=== PATIENT | female | born 1955 | race African-American/Black ===

== ENCOUNTER 2017-08-23 17:55 | Inpatient (IN) ==
[2017-08-23] MEDS ORDERED: 0.9 % Sodium Chloride 1,000 ML IVC ONE (18:09)
--- NOTE | 2017-08-23 18:18 | Emergency Department Note ---
Disposition Clinical Impression: Confusion Headache Qualifiers: Headache type: unspecified Headache chronicity pattern: unspecified pattern Intractability: not intractable Qualified Code(s): R51 - Headache Disposition: Still a Patient Condition: Good Referrals: Ham Ramirez DO [Primary Care Provider] - Time of Disposition: 18:58 General Adult HPI - General Chief complaint: ED Headache Stated complaint: headache Time Seen by Provider: 08/23/17 17:56 Source: patient, EMS Mode of arrival: ambulatory Limitations: no limitations Nursing Notes Reviewed: Yes Vital Signs Reviewed: Yes - History of Present Illness HPI Narrative: Patient presents to emergency room in the care of the family for what appears to be an acute change in mental status. By the time she arrived to the emergency room patient was completely back to baseline. Denies any other symptoms or complaints except for a headache at this time. She has no vision diarrhea, vision changes chest pain shortness breath fevers or chills at this time. Onset (ago): Just ENCAPSULATOR Location: head Radiation: non-radiation Pain Severity: moderate Pain Scale: 10 Quality: aching Consistency: constant Improves with: nothing Worsens with: nothing Associated symptoms: Reports: denies other symptoms Treatments Prior to Arrival: none - Related Data Home Medications Medication Instructions Recorded Confirmed Azathioprine [Imuran] 50 mg PO DAILY 09/09/16 04/26/17 Canagliflozin [Invokana] 300 mg PO DAILY 09/09/16 04/26/17 Diclofenac Sodium [Voltaren] 1 appl TP QID 09/09/16 04/26/17 Fexofenadine HCl [Allergy Relief] 180 mg PO DAILY 09/09/16 04/26/17 Ibuprofen [Motrin] 200 mg PO Q6HR PRN 09/09/16 04/26/17 Losartan/HCTZ [Hyzaar 50-12.5 1 tab PO DAILY 09/09/16 04/26/17 Tablet] Mesalamine [Delzicol] 800 mg PO TIDAC 09/09/16 04/26/17 Montelukast [Singulair] 10 mg PO DAILY 09/09/16 04/26/17 Multivitamin [One Daily Essential] 1 tab PO DAILY 09/09/16 04/26/17 Nystatin/Triamcinolone CRM 1 appl TP BID 09/09/16 04/26/17 [Mycolog] Ondansetron ODT [Zofran ODT] 4 mg SL Q4-6H PRN 09/09/16 04/26/17 Pantoprazole Sodium [Protonix] 40 mg PO DAILY 09/09/16 04/26/17 Paroxetine HCl [Paxil] 20 mg PO DAILY 09/09/16 04/26/17 Potassium Chloride [Klor-Con 10 meq PO DAILY 09/09/16 04/26/17 Sprinkle] Pravastatin Sodium [Pravachol] 20 mg PO HS 09/09/16 04/26/17 Ranitidine HCl [Zantac] 150 mg PO BID 09/09/16 04/26/17 SitaGLIPtin [Januvia] 100 mg PO DAILY 09/09/16 04/26/17 metFORMIN [Glucophage] 500 mg PO TID 09/09/16 04/26/17 predniSONE [PredniSONE] 5 mg PO DAILY 09/09/16 04/26/17 Previous Rx's Medication Instructions Recorded Ondansetron [Zofran] 8 mg PO Q8HR #10 tablet 09/09/16 Allergies Allergy/AdvReac Type Severity Reaction Status Date / Time Erythromycin Base Allergy Vomiting Verified 08/23/17 18:02 levofloxacin [From Levaquin] Allergy Rash Verified 08/23/17 18:02 Sulfa (Sulfonamide Allergy Rash Verified 08/23/17 18:02 Antibiotics) sulfamethoxazole Allergy Rash Verified 08/23/17 18:02 [From Bactrim] trimethoprim [From Bactrim] Allergy Rash Verified 08/23/17 18:02 All systems ED: reviewed and negative except as stated. Review of Systems: As Per HPI Constitutional: Denies: fever, chills Eyes: Denies: eye pain, eye discharge, vision change ENT ED: Denies: ear pain, throat pain, dental pain Cardiovascular: Denies: chest pain, palpitations, dyspnea on exertion Respiratory: Denies: cough, dyspnea, wheezes Gastrointestinal: Denies: nausea, vomiting, diarrhea Genitourinary: Denies: dysuria, frequency Musculoskeletal: Denies: back pain, neck pain Neurological: Denies: headache Endocrine: Denies: fatigue Past Medical History - Past Medical History Attestation: Yes The following information was validated with the patient. Source: patient Medical history: Reports: diabetes, GERD, hyperlipidemia, hypertension, migraine , other Surgical history: Reports: hysterectomy, sinus surgery, MINA/BSO, other Psychiatric history: Reports: anxiety, depression - Social History Smoking Status: Never smoker Smokeless Tobacco Status: No Alcohol use: Reports: none Drug use: Reports: none Physical Exam - General Limitations: no limitations General appearance: alert, in no apparent distress - Head Head exam: atraumatic, normocephalic, normal inspection - Eye Eye exam: Present: normal appearance, PERRL, EOMI - ENT ENT exam: normal exam, normal oropharynx, mucous membranes moist - Neck Neck exam: Present: normal inspection, full ROM, trachea midline - Chest Chest inspection: Present: normal inspection, symmetric chest wall rise - Respiratory Respiratory exam: Present: normal lung sounds bilaterally. Absent: respiratory distress, wheezes - Cardiovascular Cardiovascular exam: Present: regular rate, normal rhythm, normal heart sounds - Abdominal Exam Abdominal exam: Present: soft, Non-Tender, normal bowel sounds. Absent: tenderness, distention, guarding, rebound, rigidity, Howard's sign, Rovsing's sign, tenderness at McBurney's Point - Extremities Exam Extremities exam: Present: normal inspection, full ROM, normal capillary refill. Absent: tenderness - Back Exam Back exam: Present: normal inspection, full ROM. Absent: tenderness - Neurological Exam Neurological exam: Present: alert, oriented X3, CN II-XII intact, normal gait - Skin Skin exam: Present: warm Course Course Narrative: 62-year-old female presents to emergency room with an episode of confusion and altered mentation just prior to arrival. Patient was with family today and the found her with her eyes deviated to the right looking upwards. She does have a history of diabetes and has been hypoglycemic one time in the past. They did not check her glucose at that time. The son did give her G was prior to coming in. Repeat Accu-Chek on presentation is 100. On arrival patient is alert oriented speaking in full sentences. Her main complaint is a headache. Denies any vision changes she has intermittent nausea but no vomiting. Denies any chest pain shortness of breath nausea at this time. Patient is having some intermittent short-term memory related issues. Patient will screening evaluation for possible transient ischemic event versus hypoglycemic event. Infectious etiology will be addressed and reviewed. CT of the head chest x-ray EKG labs including CBC chemistry urinalysis troponin and thyroid function will be patient is concerning for possible strokelike symptoms. She had detailed workup completed this time. She will most likely need admission. Detailed sign out completed to Dr. Matson and Dr. akins The overnight physicians. Patient family informed in detail. Bedside signout will be completed. Vital Signs Temperature 98.9 F 08/23/17 17:55 Pulse Rate 72 08/23/17 17:55 Respiratory Rate 16 08/23/17 17:55 Blood Pressure 126/77 08/23/17 17:55 O2 Sat by Pulse Oximetry 100 08/23/17 17:55 Temperature 98.9 F 08/23/17 17:55 Pulse Rate 72 08/23/17 17:55 Respiratory Rate 16 08/23/17 17:55 Blood Pressure 126/77 08/23/17 17:55 O2 Sat by Pulse Oximetry 100 08/23/17 17:55 Oxygen Delivery Oxygen Delivery Room Air Medical Decision Making - MDM Narrative Medical decision making narrative: Altered mentation - Medical Records Medical records reviewed: Yes I reviewed the patient's medical records. - Lab Data Lab results reviewed: Yes I reviewed the patient's lab results. - Radiology Data Radiology results reviewed: Yes I reviewed the patient's radiology results. - EKG Data EKG #1 EKG attestation: Yes I reviewed and interpreted this EKG. EKG results narrative: EKG shows sinus rhythm. No acute signs of ST segment elevation. Patient may have mild left ventricular hypertrophy the list on 5 mm of elevation in aVL. She has had inverted T waves in lead 3. This appears to be chronic in comparison EKG on 06/28/13. [place] appears to be normal. No other acute interval changes. Ventricular rate is 68. IL interval 151. QRS duration 109. QTC is 391. Acute signs of WPW, [place], no abnormality at this time
[2017-08-23 18:42] LABS: Basophils % 0.4 %; Eosinophils % 0.2 %; Hematocrit 38.3 % (35.3-44.9); Hemoglobin 12.2 g/dL (11.5-15.4); Immature Granulocytes % 0.8 % (0-4); Lymphocytes # 1.6 K/mcL (0.6-4.6); Mean Corpuscular HGB Conc 31.9 g/dL (31.6-35.5); Mean Corpuscular Hemoglobin 28.3 pg (28.0-33.3); Mean Corpuscular Volume 88.9 fL (83.0-100.0); Monocytes % 9.9 %; Neutrophils # 6.9 K/mcL (1.6-8.9); Platelet Count 367 K/mcL (140-400); Red Blood Count 4.31 M/mcL (3.82-4.97); Red Cell Distribution Width 16.6 % (11.5-14.5); Segmented Neutrophils % 71.7 %
[2017-08-23 18:47] LABS: INR 0.9; Prothrombin Time 9.6 Seconds (9.4-12.1)
[2017-08-23 18:49] LABS: Activated Partial Thrombo Time 24.1 Seconds (26.0-36.0)
[2017-08-23 18:49] LABS: Bilirubin,Urine Negative (Negative); Blood,Urine Small (Negative); Clarity,Urine Clear (Clear); Color,Urine Yellow (Yellow); Glucose,Urine (UA) >=1000 mg/dL (Normal); Ketones,Urine Negative (Negative); Leukocyte Esterase,Urine Negative (Negative); Nitrite,Urine Negative (Negative); Protein,Urine Negative (Neg-Trace); Specific Gravity,Urine 1.027 (1.010-1.025); Urobilinogen,Urine Normal (Normal)
[2017-08-23 18:51] LABS: Bacteria,Urine None Seen per hpf (None-Few); Hyaline Casts,Urine None Seen per lpf (None-Few); Squamous Epithelial Cell,Urine Few per lpf (None-Few); WBC,Urine 0-3 per hpf (0-3)
[2017-08-23 18:57] LABS: Alanine Aminotransferase 27 Units/L (7-52); Albumin 3.7 g/dL (3.5-5.7); Albumin/Globulin Ratio 1.4 (1.1-2.2); Alkaline Phosphatase 66 Units/L (34-104); Aspartate Amino Transferase 18 Units/L (13-39); BUN/Creatinine Ratio 22 (6-26); Bilirubin,Direct 0.1 mg/dL (0.0-0.2); Bilirubin,Indirect 0.1 mg/dL (0.0-1.2); Bilirubin,Total 0.2 mg/dL (0.3-1.0); Blood Urea Nitrogen 21 mg/dL (8-23); Calcium 8.9 mg/dL (8.6-10.3); Carbon Dioxide 27 mEq/L (23-29); Chloride 105 mEq/L (98-107); Globulin 2.6 g/dL (2.4-3.5); Glucose 159 mg/dL (70-105); Osmolality,Calculated 298 (280-300); Sodium 141 mEq/L (136-145); Total Protein 6.3 g/dL (6.4-8.9); eGFR For African Americans > 60 (> 60); eGFR For Non-African Americans > 60 (> 60)
[2017-08-23 19:11] LABS: Thyroid Stimulating Hormone 0.812 mcIU/mL (0.340-5.600)
[2017-08-23] MEDS ORDERED: Ketorolac 15 MG/ML VIAL IVP ONE (19:57)
[2017-08-23] MEDS ORDERED: Metoclopramide 10 MG/2 ML VIAL IVP ONE (19:57)
--- NOTE | 2017-08-23 20:49 | Emergency Department Note ---
Disposition Clinical Impression: Confusion, Transient alteration of awareness Headache Qualifiers: Headache type: unspecified Headache chronicity pattern: unspecified pattern Intractability: not intractable Qualified Code(s): R51 - Headache Disposition: Admitted As Inpatient Condition: Good Referrals: Ham Ramirez DO [Primary Care Provider] - Forms: ED Satisfaction Letter General Adult HPI - General Chief complaint: ED Headache Stated complaint: headache Time Seen by Provider: 08/23/17 17:56 Source: patient, EMS Mode of arrival: ambulatory Limitations: no limitations - History of Present Illness Location: head Pain Scale: 10 Quality: aching Improves with: nothing Worsens with: nothing Associated symptoms: Reports: denies other symptoms Treatments Prior to Arrival: none - Related Data Home Medications Medication Instructions Recorded Confirmed Azathioprine [Imuran] 50 mg PO DAILY 09/09/16 08/23/17 Canagliflozin [Invokana] 300 mg PO DAILY 09/09/16 08/23/17 Fexofenadine HCl [Allergy Relief] 180 mg PO DAILY 09/09/16 08/23/17 Ibuprofen [Motrin] 200 mg PO Q6HR PRN 09/09/16 08/23/17 Losartan/HCTZ [Hyzaar 50-12.5 1 tab PO DAILY 09/09/16 08/23/17 Tablet] Mesalamine [Delzicol] 800 mg PO TIDAC 09/09/16 08/23/17 Montelukast [Singulair] 10 mg PO DAILY 09/09/16 08/23/17 Multivitamin [One Daily Essential] 1 tab PO DAILY 09/09/16 08/23/17 Nystatin/Triamcinolone CRM 1 appl TP BID PRN 09/09/16 08/23/17 [Mycolog] Ondansetron ODT [Zofran ODT] 4 mg SL Q4-6H PRN 09/09/16 08/23/17 Pantoprazole Sodium [Protonix] 40 mg PO DAILY 09/09/16 08/23/17 Paroxetine HCl [Paxil] 20 mg PO DAILY 09/09/16 08/23/17 Potassium Chloride [Klor-Con 10 meq PO DAILY 09/09/16 08/23/17 Sprinkle] Pravastatin Sodium [Pravachol] 20 mg PO HS 09/09/16 08/23/17 Ranitidine HCl [Zantac] 150 mg PO BID 09/09/16 08/23/17 SitaGLIPtin [Januvia] 100 mg PO DAILY 09/09/16 08/23/17 metFORMIN [Glucophage] 500 mg PO TID 09/09/16 08/23/17 predniSONE [PredniSONE] 5 mg PO DAILY 09/09/16 08/23/17 HYDROcodone/Acet 10/325 mg [[place] 1 tab PO BID PRN 08/23/17 08/23/17 10-325 mg] Allergies Allergy/AdvReac Type Severity Reaction Status Date / Time Erythromycin Base Allergy Vomiting Verified 08/23/17 18:02 levofloxacin [From Levaquin] Allergy Rash Verified 08/23/17 18:02 Sulfa (Sulfonamide Allergy Rash Verified 08/23/17 18:02 Antibiotics) sulfamethoxazole Allergy Rash Verified 08/23/17 18:02 [From Bactrim] trimethoprim [From Bactrim] Allergy Rash Verified 08/23/17 18:02 Constitutional: Denies: fever, chills Eyes: Denies: eye pain, eye discharge, vision change ENT ED: Denies: ear pain, throat pain, dental pain Cardiovascular: Denies: chest pain, palpitations, dyspnea on exertion Respiratory: Denies: cough, dyspnea, wheezes Gastrointestinal: Denies: nausea, vomiting, diarrhea Genitourinary: Denies: dysuria, frequency Musculoskeletal: Denies: back pain, neck pain Neurological: Denies: headache Endocrine: Denies: fatigue Past Medical History - Past Medical History Medical history: Reports: diabetes, GERD, hyperlipidemia, hypertension, migraine , other Surgical history: Reports: hysterectomy, sinus surgery, MINA/BSO, other Psychiatric history: Reports: anxiety, depression - Social History Smoking Status: Never smoker Smokeless Tobacco Status: No Alcohol use: Reports: none Drug use: Reports: none Physical Exam - General Limitations: no limitations General appearance: alert, in no apparent distress Course Course Narrative: Received signout from the day team. She had acute onset of confusion and AMS which resolved by the time she arrived to the ED. Her only residual symptoms are headache which improved after symptomatic care. She is completely back at baseline. Will admit for TIA like symptoms. Vital Signs Temperature 98.9 F 08/23/17 17:55 Pulse Rate 72 08/23/17 17:55 Respiratory Rate 16 08/23/17 17:55 Blood Pressure 126/77 08/23/17 17:55 O2 Sat by Pulse Oximetry 100 08/23/17 17:55 Temperature 98.9 F 08/23/17 17:55 Pulse Rate 72 08/23/17 17:55 Respiratory Rate 16 08/23/17 17:55 Blood Pressure 126/77 08/23/17 17:55 O2 Sat by Pulse Oximetry 100 08/23/17 17:55 Oxygen Delivery Oxygen Delivery Room Air Medical Decision Making - Medical Records Medical records reviewed: Yes I reviewed the patient's medical records. - Lab Data Lab results reviewed: Yes I reviewed the patient's lab results. Result diagrams: 08/23/17 18:26 08/23/17 18:26 Lab Results 08/23/17 08/23/17 08/23/17 Range/Units 18:06 18:26 18:26 WBC 9.6 (4.3-11.1) K/mcL RBC 4.31 (3.82-4.97) M/mcL Hgb 12.2 (11.5-15.4) g/dL Hct 38.3 (35.3-44.9) % MCV 88.9 (83.0-100.0) fL MCH 28.3 (28.0-33.3) pg MCHC 31.9 (31.6-35.5) g/dL RDW 16.6 H (11.5-14.5) % Plt Count 367 (140-400) K/mcL MPV 9.0 L (9.4-12.4) fL Immature Gran % 0.8 (0-4) % Seg Neutrophils % 71.7 % Lymphocytes % 17.0 % Monocytes % 9.9 % Eosinophils % 0.2 % Basophils % 0.4 % Neutrophils # 6.9 (1.6-8.9) K/mcL Lymphocytes # 1.6 (0.6-4.6) K/mcL Monocytes # 1.0 (0.0-1.3) K/mcL Eosinophils # 0.0 (0.0-0.6) K/mcL Basophils # 0.0 (0.0-0.2) K/mcL Immature Plt Fraction 2.0 (1.1-6.1) % PT 9.6 (9.4-12.1) Seconds INR 0.9 APTT 24.1 L (26.0-36.0) Seconds Sodium (136-145) mEq/L Potassium (3.5-5.1) mEq/L Chloride (98-107) mEq/L Carbon Dioxide (23-29) mEq/L BUN (8-23) mg/dL Creatinine (0.60-1.20) mg/dL Est GFR ( Amer) (> 60) Est GFR (Non-Af Amer) (> 60) BUN/Creatinine Ratio (6-26) Glucose (70-105) mg/dL POC Glucose 100 H (58-89) Calculated Osmolality (280-300) Calcium (8.6-10.3) mg/dL Total Bilirubin (0.3-1.0) mg/dL Direct Bilirubin (0.0-0.2) mg/dL Indirect Bilirubin (0.0-1.2) mg/dL AST (13-39) Units/L ALT (7-52) Units/L Alkaline Phosphatase (34-104) Units/L Troponin I (< 0.04) ng/mL Serum Total Protein (6.4-8.9) g/dL Albumin (3.5-5.7) g/dL Globulin (2.4-3.5) g/dL Albumin/Globulin Ratio (1.1-2.2) TSH (0.340-5.600) mcIU/mL Urine Color (Yellow) Urine Clarity (Clear) Urine pH (5.0-8.0) pH Units Ur Specific [place] (1.010-1.025) Urine Protein (Neg-Trace) mg/dL Urine Glucose (UA) (Normal) mg/dL Urine Ketones (Negative) mg/dL Urine Blood (Negative) Urine Nitrite (Negative) Urine Bilirubin (Negative) Urine Urobilinogen (Normal) mg/dL Ur Leukocyte Esterase (Negative) Urine Microscopic RBC (0-3) per hpf Urine Microscopic WBC (0-3) per hpf Ur Squamous Epith Cells (None-Few) per lpf Urine Bacteria (None-Few) per hpf Hyaline Casts (None-Few) per lpf Ur Culture Indicated? (NO) 08/23/17 08/23/17 08/23/17 Range/Units 18:26 18:26 18:37 WBC (4.3-11.1) K/mcL RBC (3.82-4.97) M/mcL Hgb (11.5-15.4) g/dL Hct (35.3-44.9) % MCV (83.0-100.0) fL MCH (28.0-33.3) pg MCHC (31.6-35.5) g/dL RDW (11.5-14.5) % Plt Count (140-400) K/mcL MPV (9.4-12.4) fL Immature Gran % (0-4) % Seg Neutrophils % % Lymphocytes % % Monocytes % % Eosinophils % % Basophils % % Neutrophils # (1.6-8.9) K/mcL Lymphocytes # (0.6-4.6) K/mcL Monocytes # (0.0-1.3) K/mcL Eosinophils # (0.0-0.6) K/mcL Basophils # (0.0-0.2) K/mcL Immature Plt Fraction (1.1-6.1) % PT (9.4-12.1) Seconds INR APTT (26.0-36.0) Seconds Sodium 141 (136-145) mEq/L Potassium 4.0 (3.5-5.1) mEq/L Chloride 105 (98-107) mEq/L Carbon Dioxide 27 (23-29) mEq/L BUN 21 (8-23) mg/dL Creatinine 0.95 (0.60-1.20) mg/dL Est GFR ( Amer) > 60 (> 60) Est GFR (Non-Af Amer) > 60 (> 60) BUN/Creatinine Ratio 22 (6-26) Glucose 159 H (70-105) mg/dL POC Glucose (58-89) Calculated Osmolality 298 (280-300) Calcium 8.9 (8.6-10.3) mg/dL Total Bilirubin 0.2 L (0.3-1.0) mg/dL Direct Bilirubin 0.1 (0.0-0.2) mg/dL Indirect Bilirubin 0.1 (0.0-1.2) mg/dL AST 18 (13-39) Units/L ALT 27 (7-52) Units/L Alkaline Phosphatase 66 (34-104) Units/L Troponin I < 0.03 (< 0.04) ng/mL Serum Total Protein 6.3 L (6.4-8.9) g/dL Albumin 3.7 (3.5-5.7) g/dL Globulin 2.6 (2.4-3.5) g/dL Albumin/Globulin Ratio 1.4 (1.1-2.2) TSH 0.812 (0.340-5.600) mcIU/mL Urine Color Yellow (Yellow) Urine Clarity Clear (Clear) Urine pH 6.0 (5.0-8.0) pH Units Ur Specific [place] 1.027 H (1.010-1.025) Urine Protein Negative (Neg-Trace) mg/dL Urine Glucose (UA) >=1000 H (Normal) mg/dL Urine Ketones Negative (Negative) mg/dL Urine Blood Small H (Negative) Urine Nitrite Negative (Negative) Urine Bilirubin Negative (Negative) Urine Urobilinogen Normal (Normal) mg/dL Ur Leukocyte Esterase Negative (Negative) Urine Microscopic RBC 3-5 H (0-3) per hpf Urine Microscopic WBC 0-3 (0-3) per hpf Ur Squamous Epith Cells Few (None-Few) per lpf Urine Bacteria None Seen (None-Few) per hpf Hyaline Casts None Seen (None-Few) per lpf Ur Culture Indicated? NO (NO) - Radiology Data Radiology results reviewed: Yes I reviewed the patient's radiology results.
[2017-08-24] MEDS ORDERED: Acetaminophen 325 MG TABLET PO PRN (00:30)
[2017-08-24] MEDS ORDERED: Ondansetron 4 MG/2 ML VIAL IVP PRN (00:30)
[2017-08-24] MEDS ORDERED: Naloxone 0.4 MG/ML INJ IVP PRN (00:30)
[2017-08-24] MEDS ORDERED: D5% in Water 1,000 ML IVC PRN (00:31)
[2017-08-24] MEDS ORDERED: Dextrose Gel 15 GM PO PRN ×2 (00:31)
[2017-08-24] MEDS ORDERED: *HR* Dextrose 50 % in Water (Syg) 50 ML SYRINGE IVP PRN (00:31)
[2017-08-24 01:30] LABS: Basophils % 0.3 %; Eosinophils % 0.2 %; Hematocrit 36.2 % (35.3-44.9); Hemoglobin 11.6 g/dL (11.5-15.4); Lymphocytes % 15.1 %; Mean Corpuscular Hemoglobin 28.4 pg (28.0-33.3); Mean Corpuscular Volume 88.5 fL (83.0-100.0); Mean Platelet Volume 9.1 fL (9.4-12.4); Monocytes # 1.2 K/mcL (0.0-1.3); Monocytes % 9.3 %; Neutrophils # 9.8 K/mcL (1.6-8.9); Nucleated Red Blood Cells 0.2 /100 WBC (0); Platelet Count 344 K/mcL (140-400); Red Blood Count 4.09 M/mcL (3.82-4.97); Red Cell Distribution Width 16.7 % (11.5-14.5); Segmented Neutrophils % 74.1 %
[2017-08-24 01:47] LABS: BUN/Creatinine Ratio 28 (6-26); Blood Urea Nitrogen 24 mg/dL (8-23); Calcium 8.8 mg/dL (8.6-10.3); Carbon Dioxide 25 mEq/L (23-29); Chloride 107 mEq/L (98-107); Chol/HDL Ratio 2.7 (0-4.9); Cholesterol 152 mg/dL (< 200); Glucose 103 mg/dL (70-105); HDL Cholesterol 56 mg/dL (40-59); LDL Cholesterol,Calculated 77 mg/dL (0-99); Osmolality,Calculated 294 (280-300); Potassium 3.4 mEq/L (3.5-5.1); Sodium 140 mEq/L (136-145); Triglycerides 94 mg/dL (< 150); eGFR For African Americans > 60 (> 60); eGFR For Non-African Americans > 60 (> 60)
--- NOTE | 2017-08-24 02:00 | Internal Med History&Physical ---
Date of Encounter: 08/24/17 Time of Encounter: 12:05 Assessment and Plan (1) Confusion Current visit: Yes Status: Acute Acute encephalopathy-could be related to neuroglycopenic symptoms versus TIA. Low suspicion for seizures. Currently at baseline. Continue to monitor blood glucose closely, noted to be 100 upon arrival to the emergency room. CT head showed no acute abnormality. Due to strong family history of CVA, check MRI brain and bilateral carotid Doppler, 2-D echocardiogram. Continue telemetry monitoring. (2) Diabetes mellitus Current visit: Yes Status: Chronic Check hemoglobin A1c. Patient reports having possible steroid-induced diabetes. Continue Accu-Chek blood glucose monitoring with sliding scale insulin as needed. Diabetic diet. Hold oral hypoglycemics for now. Qualifiers: Diabetes mellitus type: type 2 Diabetes mellitus complication status: with unspecified complications Diabetes mellitus intermediate designer insulin use: without care home use Qualified Code(s): E11.8 - Type 2 diabetes mellitus with unspecified complications (3) Crohns disease Current visit: Yes Status: Chronic Stable. Noted to be on immunosuppressants-Imuran and low-dose steroids, Mesalamine. Continue home medications. Qualifiers: Gastrointestinal tract location: unspecified location Digestive disease complication type: unspecified complication Qualified Code(s): K50.919 - Crohn 's disease, unspecified, with unspecified complications Internal Medicine - H&P: HPI Chief complaint: Altered mental status Admitted From: Emergency Dept Plans for Post Hospital Care: Home History of present illness: Ms. Hernandes is a 62 year old female with history of diabetes, who was brought in by family with complaints of altered mental status. Patient was in her usual state of health until this morning when she called her asking him to get her some ice cream from [employer]. He received another call from the patient in about 5 minutes and she reported that "she was dying" after which the phone was disconnected. The patient's and son rushed home to find her confused and lethargic with her eyes rolled up and tongue drooping, unable to answer any questions. Patient's son gave her some apple juice suspecting low blood sugars and she became somewhat alert although still confused. EMS was called and patient's mental status gradually improved by the time she reached the emergency room. In the ER, she still had some issues with memory, which gradually improved and patient is currently back to her baseline mental status. She reported having a headache after the above incident, the details of which she does not remember. Her headache is currently resolved. She also had one episode of vomiting during the episode. She currently denies paresthesias, focal weakness, blurred vision, chest pain, shortness of breath, nausea, vomiting or diarrhea. No seizure-like activity, tongue bite during the episode. Past Med Surg Social Fam HX - Past Medical History Medical history: diabetes, GERD, hyperlipidemia, migraine, other (Crohn's disease) Psychiatric history: anxiety, depression - Past Surgical History Surgical History: hysterectomy, orthopedic, other (Left knee arthroplasty, right ankle tendon repair), sinus surgery, MINA/BSO, other - Social History Smoking Status: Never smoker Smokeless Tobacco Status: No Alcohol use: none Drug use: none Occupational status: employed Current living situation: Home, With Family Activity Level: Independent ambulation Recent Out of Country Travel Within the Last 8 Weeks: No Exposure or Possible Exposure to Illness During Travel: No - Family History Mother Hx Family Endocrine Disorder: Yes (dm) Hx Family Neurologic Disorders: Yes (CVA) Brother Hx Family Endocrine Disorder: Yes (Diabetes) Hx Family Neurologic Disorders: Yes (Stroke) Internal Medicine - H&P: Meds Azathioprine [Imuran] 50 mg PO DAILY 09/09/16 [History] Canagliflozin [Invokana] 300 mg PO DAILY 09/09/16 [History] Fexofenadine HCl [Allergy Relief] 180 mg PO DAILY 09/09/16 [History] Ibuprofen [Motrin] 200 mg PO Q6HR PRN 09/09/16 [History] Losartan/HCTZ [Hyzaar 50-12.5 Tablet] 1 tab PO DAILY 09/09/16 [History] Mesalamine [Delzicol] 800 mg PO TIDAC 09/09/16 [History] Montelukast [Singulair] 10 mg PO DAILY 09/09/16 [History] Multivitamin [One Daily Essential] 1 tab PO DAILY 09/09/16 [History] Nystatin/Triamcinolone CRM [Mycolog] 1 appl TP BID PRN 09/09/16 [History] Ondansetron ODT [Zofran ODT] 4 mg SL Q4-6H PRN 09/09/16 [History] Pantoprazole Sodium [Protonix] 40 mg PO DAILY 09/09/16 [History] Paroxetine HCl [Paxil] 20 mg PO DAILY 09/09/16 [History] Potassium Chloride [Klor-Con Sprinkle] 10 meq PO DAILY 09/09/16 [History] Pravastatin Sodium [Pravachol] 20 mg PO HS 09/09/16 [History] Ranitidine HCl [Zantac] 150 mg PO BID 09/09/16 [History] SitaGLIPtin [Januvia] 100 mg PO DAILY 09/09/16 [History] metFORMIN [Glucophage] 500 mg PO TID 09/09/16 [History] predniSONE [PredniSONE] 5 mg PO DAILY 09/09/16 [History] HYDROcodone/Acet 10/325 mg [[place] 10-325 mg] 1 tab PO BID PRN 08/23/17 [History] 3 Allergy/AdvReac Type Severity Reaction Status Date / Time Erythromycin Base Allergy Vomiting Verified 08/23/17 18:02 levofloxacin [From Levaquin] Allergy Rash Verified 08/23/17 18:02 Sulfa (Sulfonamide Allergy Rash Verified 08/23/17 18:02 Antibiotics) sulfamethoxazole Allergy Rash Verified 08/23/17 18:02 [From Bactrim] trimethoprim [From Bactrim] Allergy Rash Verified 08/23/17 18:02 All Systems PM: A 10-system review of systems was performed and is negative for pertinent findings except as documented above in the HPI. - Constitutional Constitutional: no chills, no fever(s), no night sweats - EENT Eyes: no change in vision, no discharge, no pain, no photophobia Ears: no ear discharge, no ear pain, no tinnitus Nose, mouth and throat: no dysphagia, no nasal discharge, no neck pain, no sore throat - Cardiovascular Cardiovascular ROS IM: no chest pain, no diaphoresis, no dyspnea, no lightheadedness, no palpitations, no syncope - Respiratory Respiratory: no cough, no dyspnea, no wheezing, no excessive phlegm production - Gastrointestinal Gastrointestinal: no abdominal pain, no diarrhea, no hematemesis, no hematochezia, no melena, no nausea, no vomiting - Genitourinary Genitourinary: no change in urinary stream, no dysuria, no flank pain, no hematuria - Musculoskeletal Musculoskeletal ROS IM: no numbness, no tingling - Integumentary Integumentary IM: no rash, no unusual bruising - Neurological Neurological ROS: abnormal speech, behavioral changes, confusion - Hematologic/Lymphatic Hematologic/Lymphatic: no easy bruising - Constitutional Vitals: Temp Pulse Resp BP Pulse Ox 98.2 F 87 15 113/71 97 08/23/17 21:25 08/23/17 21:25 08/23/17 21:25 08/23/17 21:25 08/23/17 21:25 General appearance: Present: A&O X 3, answers questions appropriately - Respiratory Respiratory exam: Present: CTAB. Absent: accessory muscle use, rales, rhonchi, wheezes - Cardiovascular Cardiovascular exam: Present: RRR, +S1, +S2. Absent: diastolic murmur, gallop, rubs, systolic murmur - GI/Abdominal GI/Abdominal exam: Present: normal bowel sounds, soft, no peritoneal signs. Absent: distended, tenderness - Extremities Exam Extremities exam: Present: full ROM, warm, radial pulses palpable and symmetrical. Absent: calf tenderness, cyanotic, pedal edema - Neurological Exam Neurological exam: Present: CN II-XII intact, oriented X3, no focal deficits. Absent: pronater drift, facial droop, speech deficit - Skin Skin exam: Present: dry, intact Internal Med - H&P Results - Labs CBC & Chem 7: 08/24/17 00:51 08/24/17 00:51 Labs: Short CBC 08/24/17 Range/Units 00:51 WBC 13.3 H (4.3-11.1) K/mcL Hgb 11.6 (11.5-15.4) g/dL Hct 36.2 (35.3-44.9) % Plt Count 344 (140-400) K/mcL Neutrophils # 9.8 H (1.6-8.9) K/mcL BMP 08/24/17 00:51 Sodium 140 Potassium 3.4 L Chloride 107 Carbon Dioxide 25 BUN 24 H Creatinine 0.87 Glucose 103 Calcium 8.8 - EKG Data -: EKG Interpreted by Myself EKG shows normal: sinus rhythm (Low voltage in precordial leads V4 through V6)
[2017-08-24] MEDS: *HR* HYDROcodone/Acet 10/325 mg TABLET PO PRN ×2 (06:52→16:06)
[2017-08-24] MEDS: Multivit/Ca/Min/Fe/FA 1 TAB TABLET PO SCH (08:33)
[2017-08-24] MEDS: Insulin LISPRO 300 UNITS/3 ML VIAL SQ SCH ×3 (08:34→17:23)
[2017-08-24] MEDS: predniSONE 10 MG TABLET PO SCH (08:34)
[2017-08-24] MEDS ORDERED: Losartan/HCTZ 50-12.5 TABLET PO SCH (09:00)
[2017-08-24] MEDS ORDERED: *HR* LORazepam 1 MG TABLET PO ONE (09:56)
[2017-08-24] MEDS ORDERED: Aspirin 81 MG TAB.CHEW PO SCH (12:30)
[2017-08-24] MEDS: *HR* Heparin 5,000 UNIT/ML VIAL SQ SCH ×2 (14:13→21:36)
--- NOTE | 2017-08-24 16:50 | Event Note ---
Date of Encounter: 08/24/17 Time of Encounter: 11:30 Seen and examined at bedside. In summary 62-year-old female who presented with bilateral face paresthesia. Found to have an acute stroke. Neurologically intact, paresthesia resolved. Nonfocal. 1. Acute CVA: Brain MRI with acute infarct of right thalamus, no mass effect or midline shift. Head/neck CTA concerning for possible embolus of left vertebral artery and severe irregularity of right posterior cerebral artery concerning for high-grade stenosis or occlusion. Discussed with Dr. Meza advised me to confer with [facility] telemetry stroke. Discussed with Dr. Silva at our who recommended no transferred this time as patient is neurologically intact; recommended dual antiplatelet therapy with Plavix/ASA or Coumadin for 3 months; repeat imaging to assess embolus status. Family updated at bedside. Continue ASA for now. Will discuss with Dr. Meza
--- NOTE | 2017-08-24 16:53 | Neurology - Consult Note ---
Date of Encounter: 08/24/17 Time of Encounter: 16:51 Assessment and Plan (1) CVA (cerebral vascular accident) Current Visit: Yes Status: Acute Patient with HTN, DM, hyperlipidemia who developed acute cerebra infarct at the right parahippocampus and dorsal aspect of right thalamus corresponding to right PULMONARY FUNCTION TECHNOLOGIST territory, this would be consistent with the severe irregularity or occlusion of right PULMONARY FUNCTION TECHNOLOGIST with establishment of collaterals. Contacted with [facility] interventional who suggested conservative treatment with short term dual antiplatelet therapy or anticoagulation therapy and repeat CT angiogram. There is not definitive guidelines for this type of cerebral infarct and CT angio findings however i agree we need to treat a little aggressively than a babe aspirin however, i would suggest switching to Plavix monotherapy to reduce risk of bleeding. Patient currently is asymptomatic. Stroke work up is already completed. Permissive BP control. Continue statin therapy and risk factor modification recommended. Qualifiers: CVA mechanism: occlusion Precerebral and cerebral artery: posterior cerebral artery Laterality of affected vessel: right Qualified Code(s): I63.531 - Cerebral infarction due to unspecified occlusion or stenosis of right posterior cerebral artery History of Present Illness Chief complaint: confusion HPI: Ms. Hernandes is a 62 year old female with PMH significant for HTN, DM hyperlipidemia, and obesity who presented initially with acute onset of confusion, headaches and memory difficulty. She is interviewed in the presence of her and son. Symptoms occurred yesterday and she suddenly developed headaches and hearing some sound to the right side of head and was confused. She could not remember what happened during that time later. By the time she arrived ER her symptoms resolved. She does still have some headaches to the right side of head. She also has been having headaches chronically as well. She was started Aspirin 81mg daily. MRI of brain showed acute infarct at the right parahippocampal region and posterior temporal lobe. At the time of this writing the patient also completed CTA of neck and head, please refer to report for details. Currently the patient denies significant discomforts except right sided headache. Past Med Surg Social Fam HX - Past Medical History Medical history: diabetes, GERD, hyperlipidemia, migraine, other (Crohn's disease) Psychiatric history: anxiety, depression - Past Surgical History Surgical History: hysterectomy, orthopedic, other (Left knee arthroplasty, right ankle tendon repair), sinus surgery, MINA/BSO, other - Social History Smoking Status: Never smoker Smokeless Tobacco Status: No Alcohol use: none Drug use: none - Family History Mother Hx Family Endocrine Disorder: Yes (dm) Hx Family Neurologic Disorders: Yes (CVA) Brother Hx Family Endocrine Disorder: Yes (Diabetes) Hx Family Neurologic Disorders: Yes (Stroke) Medications and Allergies Azathioprine [Imuran] 50 mg PO DAILY 09/09/16 [History] Canagliflozin [Invokana] 300 mg PO DAILY 09/09/16 [History] Fexofenadine HCl [Allergy Relief] 180 mg PO DAILY 09/09/16 [History] Ibuprofen [Motrin] 200 mg PO Q6HR PRN 09/09/16 [History] Losartan/HCTZ [Hyzaar 50-12.5 Tablet] 1 tab PO DAILY 09/09/16 [History] Mesalamine [Delzicol] 800 mg PO TIDAC 09/09/16 [History] Montelukast [Singulair] 10 mg PO DAILY 09/09/16 [History] Multivitamin [One Daily Essential] 1 tab PO DAILY 09/09/16 [History] Nystatin/Triamcinolone CRM [Mycolog] 1 appl TP BID PRN 09/09/16 [History] Ondansetron ODT [Zofran ODT] 4 mg SL Q4-6H PRN 09/09/16 [History] Pantoprazole Sodium [Protonix] 40 mg PO DAILY 09/09/16 [History] Paroxetine HCl [Paxil] 20 mg PO DAILY 09/09/16 [History] Potassium Chloride [Klor-Con Sprinkle] 10 meq PO DAILY 09/09/16 [History] Pravastatin Sodium [Pravachol] 20 mg PO HS 09/09/16 [History] Ranitidine HCl [Zantac] 150 mg PO BID 09/09/16 [History] SitaGLIPtin [Januvia] 100 mg PO DAILY 09/09/16 [History] metFORMIN [Glucophage] 500 mg PO TID 09/09/16 [History] predniSONE [PredniSONE] 5 mg PO DAILY 09/09/16 [History] HYDROcodone/Acet 10/325 mg [[place] 10-325 mg] 1 tab PO BID PRN 08/23/17 [History] 3 Allergy/AdvReac Type Severity Reaction Status Date / Time Erythromycin Base Allergy Vomiting Verified 08/23/17 18:02 levofloxacin [From Levaquin] Allergy Rash Verified 08/23/17 18:02 Sulfa (Sulfonamide Allergy Rash Verified 08/23/17 18:02 Antibiotics) sulfamethoxazole Allergy Rash Verified 08/23/17 18:02 [From Bactrim] trimethoprim [From Bactrim] Allergy Rash Verified 08/23/17 18:02 All Systems: A 10-system review of systems was performed and is negative for pertinent findings except as documented above in the HPI. Physical Examination - Vital Signs Vital Signs: Initial Vital Signs Temp Pulse Resp BP Pulse Ox 98.9 F 72 16 126/77 100 08/23/17 17:55 08/23/17 17:55 08/23/17 17:55 08/23/17 17:55 08/23/17 17:55 - Constitutional General appearance: comfortable - Neurologic Detailed motor examination: full strength in all major muscle groups Motor examination - right side: 5/5: deltoids, biceps, triceps, wrist flexion, wrist extension, corporate fitness program coordinator, hip flexors, tibialis Anterior, quadriceps, toe extension (EHL), plantarflexion Motor examination - left side: 5/5: deltoids, biceps, triceps, wrist flexion, wrist extension, hip flexors, corporate fitness program coordinator, quadriceps, tibialis Anterior, toe extension (EHL), plantarflexion Mental Status Examination: awake, alert, oriented to person, oriented to place, oriented to time, follows commands appropriately, answers questions appropriately, no agnosia, no aphasia, no aproxia Cranial nerve examination: PERRL, EOMI, visual phillips intact, corneal reflexes brisk symmetrically, sensory to face intact, mastication intact, no facial asymmetry is present, no dysarthria, hearing is intact symmetrically, soft palate elevates bilaterally upon phonation, gag reflex intact, flexes SCM and trapezius muscles symmetrically with full power, tongue protrudes midline, no atrophy or facial fasiculations present Cerebellar examination: no dysmetria, performs finger to nose and heel to garcia symmetrically without ataxia, no gait ataxia, no truncal ataxia, no difficulty with rapid alternating movements Results - Laboratory Findings CBC and BMP: 08/24/17 00:51 08/24/17 00:51 Abnormal lab findings: Abnormal lab results WBC 13.3 K/mcL (4.3-11.1) H 08/24/17 00:51 RDW 16.7 % (11.5-14.5) H 08/24/17 00:51 MPV 9.1 fL (9.4-12.4) L 08/24/17 00:51 Neutrophils # 9.8 K/mcL (1.6-8.9) H 08/24/17 00:51 Nucleated RBCs/100 WBC 0.2 /100 WBC (0) H 08/24/17 00:51 APTT 24.1 Seconds (26.0-36.0) L 08/23/17 18:26 Potassium 3.4 mEq/L (3.5-5.1) L 08/24/17 00:51 BUN 24 mg/dL (8-23) H 08/24/17 00:51 BUN/Creatinine Ratio 28 (6-26) H 08/24/17 00:51 POC Glucose 111 (58-89) H 08/23/17 21:24 Hemoglobin A1c 6.0 % (-5.6) H 08/24/17 00:51 Total Bilirubin 0.2 mg/dL (0.3-1.0) L 08/23/17 18:26 Serum Total Protein 6.3 g/dL (6.4-8.9) L 08/23/17 18:26 Ur Specific [place] 1.027 (1.010-1.025) H 08/23/17 18:37 Urine Glucose (UA) >=1000 mg/dL (Normal) H 08/23/17 18:37 Urine Blood Small (Negative) H 08/23/17 18:37 Urine Microscopic RBC 3-5 per hpf (0-3) H 08/23/17 18:37 - Diagnostic Findings Additional findings: Echocardiography: echocardiogram Impressions: LVEF 60%. Mild left ventricular diastolic dysfunction. Normal right ventricular structure and function. No significant valvular dysfunction. No pulmonary hypertension. Carotid artery duplex study: Impressions: Findings: Bilateral ICA have a moderate, 40-59% stenosis. CT/CT angio neck IMPRESSION: 1. There is lack of enhancement within the the left cervical vertebral artery from the of the C6 level through the V3 segment with a small amount of enhancement at the C2 and C3 levels. There is question of an embolus of the left vertebral artery at the C3 level with suggestion of a meniscus sign. 2. Severe irregularity with likely either high-grade stenosis or occlusion involving the right posterior cerebral artery. This is likely chronic in nature given multiple small collateral vessels within the right parietal and occipital lobe. This likely accounts for the MRI appearance. These results were sent to the [facility] on 08/24/2017 at 3:54 pm to be communicated to the referring/covering health care provider/office. MR/MR head/brain wo con IMPRESSION: 1. There is an acute infarct involving the posterior aspect of the right parahippocampal gyrus as well as the dorsal aspect of the right thalamus. 2. No significant mass effect or midline shift. 3. There is incomplete suppression of the T2 FLAIR signal within the smaller vessels of the right temporal and occipital lobes. This can be seen with slow flow versus occlusion. Consider further evaluation with CTA of the head. 4. There appears to be a linear susceptibility within the right quadrigeminal plate cistern, which could be related to a prior hemorrhage. Consult Discharge Plan - Plan Referrals: Ham Ramirez DO [Primary Care Provider] -
[2017-08-24] MEDS ORDERED: Insulin LISPRO 300 UNITS/3 ML VIAL SQ SCH (21:00)
[2017-08-25 05:13] LABS: Hematocrit 38.8 % (35.3-44.9); Hemoglobin 12.6 g/dL (11.5-15.4); Mean Corpuscular HGB Conc 32.5 g/dL (31.6-35.5); Mean Corpuscular Hemoglobin 28.3 pg (28.0-33.3); Mean Platelet Volume 9.4 fL (9.4-12.4); Platelet Count 343 K/mcL (140-400); Red Blood Count 4.46 M/mcL (3.82-4.97); Red Cell Distribution Width 16.8 % (11.5-14.5)
[2017-08-25] MEDS: *HR* Heparin 5,000 UNIT/ML VIAL SQ SCH ×2 (05:16→13:56)
[2017-08-25 05:26] LABS: BUN/Creatinine Ratio 20 (6-26); Blood Urea Nitrogen 15 mg/dL (8-23); Calcium 9.1 mg/dL (8.6-10.3); Carbon Dioxide 29 mEq/L (23-29); Chloride 107 mEq/L (98-107); Chol/HDL Ratio 2.8 (0-4.9); Cholesterol 168 mg/dL (< 200); Glucose 94 mg/dL (70-105); HDL Cholesterol 59 mg/dL (40-59); LDL Cholesterol,Calculated 89 mg/dL (0-99); Osmolality,Calculated 295 (280-300); Potassium 3.6 mEq/L (3.5-5.1); Sodium 142 mEq/L (136-145); Triglycerides 101 mg/dL (< 150); eGFR For African Americans > 60 (> 60); eGFR For Non-African Americans > 60 (> 60)
[2017-08-25] MEDS: *HR* HYDROcodone/Acet 10/325 mg TABLET PO PRN (05:45)
[2017-08-25] MEDS: Insulin LISPRO 300 UNITS/3 ML VIAL SQ SCH ×2 (08:08→12:24)
[2017-08-25] MEDS: predniSONE 10 MG TABLET PO SCH (08:28)
[2017-08-25] MEDS: Multivit/Ca/Min/Fe/FA 1 TAB TABLET PO SCH (08:29)
[2017-08-25] MEDS ORDERED: Ibuprofen 400 MG TABLET PO ONE (09:47)
[2017-08-25] MEDS ORDERED: Ketorolac 30 MG/ML VIAL IVP ONE (11:00)
[2017-08-25] MEDS ORDERED: Metoclopramide 10 MG/2 ML VIAL IVP ONE (11:00)
[2017-08-25 11:22] VITALS: BP 106/66
--- NOTE | 2017-08-25 13:54 | Discharge Summary ---
Date of Encounter: 08/25/17 Time of Encounter: 13:52 - Discharge Diagnosis (1) CVA (cerebral vascular accident) Priority: Primary Status: Acute Comments: presented with bilateral face paresthesia and headache. Head CT non-acute. Brain MRI with acute cerebral infarct at the right parahippocampus and dorsal aspect of right thalamus corresponding to right WOOLING MACHINE OPERATOR territory. Head/neck CTA with severe irregularity or occlusion of right WOOLING MACHINE OPERATOR with establishment of collaterals and question of embolus to left vertebral artery. TTE with no evidence of PFO or cardiac source of emboli. Bilateral carotid Dopplers with 40 -59% stenosis. Case discussed with [facility] stroke center on 08/24/2017 and no intervention indicated at this time, continue with medical management. Evaluated by Neurology who recommended Plavix. HgbA1c 6%, LDL 89. All symptoms resolved at time of discharge. Will need to follow-up with neurology Qualifiers: CVA mechanism: occlusion Precerebral and cerebral artery: posterior cerebral artery Laterality of affected vessel: right Qualified Code(s): I63.531 - Cerebral infarction due to unspecified occlusion or stenosis of right posterior cerebral artery (2) Essential hypertension Priority: Primary Status: Acute Comments: per hx. BP soft/borderline while inpatient. Advised patient to monitor BP at home and hold BP medication if SBP less than 110. (3) Adrenal insufficiency Priority: Secondary Status: Chronic Comments: per hx. Cont home steroids. (4) Diabetes mellitus Priority: Secondary Status: Chronic Comments: per hx. Hgb A1c 6%. Continue home diabetes medication regimen. Qualifiers: Diabetes mellitus type: type 2 Diabetes mellitus complication status: with unspecified complications Diabetes mellitus technician terminal and repeater insulin use: without chcf use Qualified Code(s): E11.8 - Type 2 diabetes mellitus with unspecified complications (5) Crohns disease Priority: Secondary Status: Chronic Comments: per hx. Cont home imuran Qualifiers: Gastrointestinal tract location: unspecified location Digestive disease complication type: unspecified complication Qualified Code(s): K50.919 - Crohn 's disease, unspecified, with unspecified complications - Discharge Medications Prescriptions: Clopidogrel [Plavix] 75 mg PO DAILY #30 tablet Home Medications: Azathioprine [Imuran] 50 mg PO DAILY 09/09/16 [History] Canagliflozin [Invokana] 300 mg PO DAILY 09/09/16 [History] Fexofenadine HCl [Allergy Relief] 180 mg PO DAILY 09/09/16 [History] Ibuprofen [Motrin] 200 mg PO Q6HR PRN 09/09/16 [History] Losartan/HCTZ [Hyzaar 50-12.5 Tablet] 1 tab PO DAILY 09/09/16 [History] Mesalamine [Delzicol] 800 mg PO TIDAC 09/09/16 [History] Montelukast [Singulair] 10 mg PO DAILY 09/09/16 [History] Multivitamin [One Daily Essential] 1 tab PO DAILY 09/09/16 [History] Nystatin/Triamcinolone CRM [Mycolog] 1 appl TP BID PRN 09/09/16 [History] Ondansetron ODT [Zofran ODT] 4 mg SL Q4-6H PRN 09/09/16 [History] Pantoprazole Sodium [Protonix] 40 mg PO DAILY 09/09/16 [History] Paroxetine HCl [Paxil] 20 mg PO DAILY 09/09/16 [History] Potassium Chloride [Klor-Con Sprinkle] 10 meq PO DAILY 09/09/16 [History] Pravastatin Sodium [Pravachol] 20 mg PO HS 09/09/16 [History] Ranitidine HCl [Zantac] 150 mg PO BID 09/09/16 [History] SitaGLIPtin [Januvia] 100 mg PO DAILY 09/09/16 [History] metFORMIN [Glucophage] 500 mg PO TID 09/09/16 [History] predniSONE [PredniSONE] 5 mg PO DAILY 09/09/16 [History] HYDROcodone/Acet 10/325 mg [[place] 10-325 mg] 1 tab PO BID PRN 08/23/17 [History] Clopidogrel [Plavix] 75 mg PO DAILY #30 tablet 08/25/17 [Rx] Allergies/Adverse Reactions: 3 Allergy/AdvReac Type Severity Reaction Status Date / Time Erythromycin Base Allergy Vomiting Verified 08/23/17 18:02 levofloxacin [From Levaquin] Allergy Rash Verified 08/23/17 18:02 Sulfa (Sulfonamide Allergy Rash Verified 08/23/17 18:02 Antibiotics) sulfamethoxazole Allergy Rash Verified 08/23/17 18:02 [From Bactrim] trimethoprim [From Bactrim] Allergy Rash Verified 08/23/17 18:02 Date of admission: 08/24/17 12:46 Primary care physician: Ham Ramirez DO Discharging clinician: Lyssa Vernon Anticipated date of discharge: 08/25/17 - Patient Status Disposition: Home, Self-Care Condition: Good Overall status at discharge: patient is progressing back to baseline - Discharge Instructions Instructions: Ischemic Stroke (DC), Clopidogrel (By mouth) Follow Up With: Ham Ramirez DO [Primary Care Provider] - 09/02/17 10:45 am - Diet and Activity Activity: increase activity as tolerated Diet: diabetic diet, low fat, low cholesterol Interval History: Seen and examined at bedside; she reports a headache but otherwise says she feels back to baseline and would like to discharge home today. Says she gets frequent headaches at home which is usually relieved with [place] and ibuprofen. Sees IV headache cocktail with relief of headache. Denies paresthesia, no vision changes. Discussed with Dr. Meza and ciara to discharge with neurology follow-up. Hospital course: See assessment and plan for hospital course - Time Spent with Patient Total time spent providing and/or coordinating discharge services: - Constitutional Vitals: Temp Pulse Resp BP Pulse Ox 98.1 F 80 16 106/66 97 08/25/17 11:19 08/25/17 11:19 08/25/17 11:19 08/25/17 11:19 08/25/17 11:19 General appearance: Present: A&O X 3, morbidly obese, answers questions appropriately - Head Head exam: Present: atraumatic, normocephalic - Eye Eye exam: Present: PERRL, conjuntiva pink, sclera anicteric Pupils: Present: PERRL - Neck Neck exam general surgery: Present: supple, trachea midline. Absent: lymphadenopathy - Respiratory Respiratory exam: Present: CTAB. Absent: accessory muscle use, rales, rhonchi, wheezes - Cardiovascular Cardiovascular exam: Present: RRR, +S1, +S2. Absent: diastolic murmur, gallop, rubs, systolic murmur - GI/Abdominal GI/Abdominal exam: Present: normal bowel sounds, soft, no peritoneal signs. Absent: distended, tenderness - Extremities Exam Extremities exam: Present: warm, radial pulses palpable and symmetrical. Absent : calf tenderness, cyanotic, pedal edema - Neurological Exam Neurological exam: Present: CN II-XII intact, oriented X3, no focal deficits. Absent: pronater drift, facial droop, speech deficit - Skin Skin exam: Present: dry, intact
--- NOTE | 2017-08-25 16:14 | Electrocardiograph Report ---
[place] [id number] Test Date: 2017-08-23 Pat Name: Sherrie Hernandes Department: 104 Room: 3B Gender: F Phlebotomy Program Coordinator: CHRIS : 1955 Requested By: Logan Whittington Order Number: [id number] Reading MD: Jose Raul Acosta MD Measurements Intervals [place] Rate: 68 P: 26 RI: 151 QRS: -7 QRSD: 109 T: 3 QT: 374 QTc: 391 Interpretive Statements SINUS RHYTHM MODERATE VOLTAGE CRITERIA FOR LVH, CONSIDER NORMAL VARIANT Poor R wave progression Electronically Signed On 08-25-2017 16:13:04 EST by Jose Raul Acosta MD
== END 2017-08-25 14:44 | disposition home or self-care (01) | DRG 64 ==
LOC: 3BNU 17:55 → EMEROO 17:55 → 3BNU 21:15
PROVIDERS: ADMIT Registered Nurse; ATTEND Registered Nurse